=== PATIENT | male | born 1950 | race Caucasian/White ===

== ENCOUNTER 2022-04-30 19:33 | Inpatient (IN) ==
[2022-04-30 20:29] LABS: Basophils % 0.3 % (0.0-0.8); Eosinophils # 0.1 10*3/uL (0.0-0.87); Eosinophils % 1.2 % (0.00-10.9); Hematocrit 26.7 VOL% (42.0-52.0); Hemoglobin 8.4 GM/DL (14.0-18.0); Immature Granulocytes % 0.6 %; Immature Granulocytes Absolute 0.06 #; Lymphocytes # 1.1 10*3/uL (1.4-4.0); Lymphocytes % 11.1 % (21.2-54.2); Mean Corpuscular HGB Conc 31.5 GM/DL (32-36); Mean Corpuscular Volume 92.1 FL (87-102); Mean Platelet Volume 9.9 FL (9.6-12.0); Monocytes # 0.5 10*3/uL (0.11-0.8); Monocytes % 5.4 % (1.7-12.7); Neutrophils % 81.4 % (38.7-73.9); Platelet Count 160 T/CUMM (130-400); Red Cell Distribution Width 16.7 % (9.3-17.3); White Blood Count 9.4 T/CUMM (4-12)
[2022-04-30 20:31] LABS: Albumin 3.5 G/DL (3.4-5.0); Bilirubin,Total 1.5 MG/DL (0.20-1.00); Calcium 8.5 MG/DL (8.5-10.1); Osmolality,Calculated 281.4 MOS/KG (273-304)
[2022-04-30] MEDS ORDERED: PANTOPRAZOLE INJ 80 MG in SODIUM CHLORIDE 0.9% 100 ML IV ONE (23:08)
[2022-04-30] MEDS ORDERED: GLUCAGON 1 MG VIAL IM PRN (23:16)
[2022-04-30] MEDS ORDERED: hydrALAZINE 20 MG/1 ML VIAL IV PRN (23:25)
[2022-04-30] MEDS ORDERED: ONDANSETRON 4 MG/2 ML VIAL IV PRN (23:25)
[2022-04-30] MEDS ORDERED: DEXTROSE 10% 250 ML BAG IV PRN (23:33)
[2022-04-30] MEDS ORDERED: PANTOPRAZOLE 40 MG VIAL IV ONE (23:49)
[2022-05-01] MEDS ORDERED: TRIAMTERENE/HCTZ 37.5-25 MG TABLET PO PRN (00:17)
[2022-05-01] MEDS ORDERED: FLUTICASONE 50 MCG NASAL SPRAY 16 GM BOTTLE BOTH NARES PRN (00:17)
[2022-05-01] MEDS ORDERED: MONTELUKAST 10 MG TABLET PO PRN (00:17)
[2022-05-01] MEDS ORDERED: NITROGLYCERIN SL 0.4 MG TABLET SL PRN (00:17)
[2022-05-01 00:18] LABS: Albumin 3.2 G/DL (3.4-5.0); Bilirubin,Total 1.5 MG/DL (0.20-1.00); Calcium 8.5 MG/DL (8.5-10.1); Osmolality,Calculated 277.7 MOS/KG (273-304); Potassium 4.9 MMOL/L (3.5-5.1); Total Protein 6.1 G/DL (6.4-8.2)
[2022-05-01] MEDS: LACTATED RINGERS 1,000 ML IV SCH ×3 (01:56→20:54)
[2022-05-01 08:44] LABS: Hematocrit 25.3 VOL% (42.0-52.0); Hemoglobin 7.9 GM/DL (14.0-18.0)
[2022-05-01] MEDS ORDERED: PANTOPRAZOLE 40 MG VIAL IV SCH (09:00)
[2022-05-01] MEDS: ATORVASTATIN 40 MG TABLET PO SCH (09:23)
[2022-05-01] MEDS: TAMSULOSIN 0.4 MG CAPSULE PO SCH ×2 (09:23→20:54)
[2022-05-01] MEDS: ERGOCALCIFEROL 50,000 UNIT CAPSULE PO SCH (09:24)
[2022-05-01] MEDS: POLYETHYLENE GLYCOL POWDER 17 GM PACK PO SCH ×2 (09:26→20:54)
[2022-05-01] MEDS: PANTOPRAZOLE 40 MG VIAL IV SCH ×2 (09:26→20:54)
[2022-05-01] MEDS ORDERED: SODIUM CHLORIDE 0.9% 1,000 ML IV PRN (12:50)
[2022-05-01] MEDS ORDERED: ACETAMINOPHEN 325 MG TABLET PO PRN (14:09)
[2022-05-01] MEDS ORDERED: METOPROLOL TARTRATE 5 MG/5 ML VIAL IV PRN ×2 (15:42→16:34)
[2022-05-01 16:27] LABS: Hemoglobin 8.2 GM/DL (14.0-18.0)
[2022-05-01] MEDS ORDERED: DIGOXIN 0.5 MG/2 ML AMP IV ONE ×2 (17:17→17:22)
[2022-05-01 19:42] LABS: Hematocrit 23.7 VOL% (42.0-52.0); Hemoglobin 7.5 GM/DL (14.0-18.0)
[2022-05-02] MEDS ORDERED: EPINEPHrine 1 MG/10 ML SYRINGE IV ONE (04:09)
[2022-05-02] MEDS ORDERED: ETOMIDATE 20 MG/10 ML VIAL IV ONE (04:21)
[2022-05-02] MEDS ORDERED: ROCURONIUM 100 MG/10 ML VIAL IV ONE (04:21)
[2022-05-02 04:51] LABS: Arterial Base Excess iSTAT 1 MMOL/L (-2.5-2.5); Arterial Bicarbonate iSTAT 27.3 MMOL/L (20-26); Arterial O2 Saturation iSTAT 100 % (95-100); Arterial PCO2 iSTAT 49 MM HG (35-48); Arterial PO2 iSTAT 503 MM HG (80-95); Arterial Total CO2 iSTAT 29 MMO/L (23-27); Arterial pH iSTAT 7.353 (7.35-7.45)
[2022-05-02 04:59] LABS: Basophils # 0.1 10*3/uL (0.0-0.2); Basophils % 0.5 % (0.0-0.8); Eosinophils # 0.2 10*3/uL (0.0-0.87); Eosinophils % 1.4 % (0.00-10.9); Hematocrit 28.8 VOL% (42.0-52.0); Hemoglobin 8.9 GM/DL (14.0-18.0); Immature Granulocytes % 0.6 %; Immature Granulocytes Absolute 0.06 #; Lymphocytes # 2.9 10*3/uL (1.4-4.0); Lymphocytes % 28.3 % (21.2-54.2); Mean Corpuscular HGB Conc 30.9 GM/DL (32-36); Mean Corpuscular Volume 94.4 FL (87-102); Mean Platelet Volume 9.6 FL (9.6-12.0); Monocytes # 0.7 10*3/uL (0.11-0.8); Monocytes % 6.6 % (1.7-12.7); Neutrophils % 62.6 % (38.7-73.9); Platelet Count 173 T/CUMM (130-400); Red Blood Count 3.05 MC/CUMM (3.8-5.5); Red Cell Distribution Width 16.6 % (9.3-17.3); White Blood Count 10.4 T/CUMM (4-12)
[2022-05-02] MEDS ORDERED: METOPROLOL TARTRATE 5 MG/5 ML VIAL IV ONE (05:00)
[2022-05-02 05:07] LABS: INR 1.1; PT Patient Result 11.6 SECS (10.1-12.1)
[2022-05-02] MEDS ORDERED: AMIODARONE 450 MG/9 ML VIAL IV ONE (05:18)
[2022-05-02 05:21] LABS: Calcium 8.5 MG/DL (8.5-10.1); Osmolality,Calculated 290.8 MOS/KG (273-304)
[2022-05-02] MEDS: AMIODARONE INJ 450 MG in DEXTROSE 5% 241 ML IV SCH ×2 (05:23→20:30)
[2022-05-02 05:24] LABS: Albumin 3.5 G/DL (3.4-5.0); Bilirubin,Total 2.2 MG/DL (0.20-1.00); Calcium 8.5 MG/DL (8.5-10.1); Potassium 2.8 MMOL/L (3.5-5.1); Total Protein 6.7 G/DL (6.4-8.2)
[2022-05-02] MEDS ORDERED: MIDAZOLAM 100 MG in SODIUM CHLORIDE 0.9% 80 ML IV PRN (05:25)
[2022-05-02] MEDS ORDERED: MIDAZOLAM 2 MG/2 ML VIAL ONE (05:39)
[2022-05-02] MEDS ORDERED: MIDAZOLAM 2 MG/2 ML VIAL IV ONE ×2 (06:00→10:30)
[2022-05-02] MEDS ORDERED: SODIUM CHLORIDE 0.9% 500 ML IV ONE ×2 (06:00→07:00)
[2022-05-02] MEDS ORDERED: POTASSIUM CHLORIDE 20 MEQ TABLET PO ONE (06:00)
[2022-05-02] MEDS: ATORVASTATIN 40 MG TABLET PO SCH (08:42)
[2022-05-02] MEDS: TAMSULOSIN 0.4 MG CAPSULE PO SCH ×2 (08:42→20:31)
[2022-05-02] MEDS: CLOPIDOGREL 75 MG TABLET PO SCH (08:42)
[2022-05-02] MEDS: PANTOPRAZOLE 40 MG VIAL IV SCH ×2 (08:42→20:31)
[2022-05-02] MEDS: POLYETHYLENE GLYCOL POWDER 17 GM PACK PO SCH ×2 (08:42→20:31)
[2022-05-02] MEDS: POTASSIUM CHLORIDE RIDER 10 MEQ/100 ML PREMIX IV PRN (08:46)
[2022-05-02 08:51] LABS: Hematocrit 26.1 VOL% (42.0-52.0); Hemoglobin 8.3 GM/DL (14.0-18.0)
[2022-05-02] MEDS: ASPIRIN CHEW 81 MG TABLET PO SCH (08:53)
[2022-05-02] MEDS ORDERED: ASPIRIN EC 81 MG TABLET PO SCH (09:00)
[2022-05-02] MEDS ORDERED: NOREPINEPHRINE 8 MG in SODIUM CHLORIDE 0.9% 242 ML IV PRN (09:08)
[2022-05-02 11:27] LABS: ABG Base Excess 1.4 MMOL/L (-2.5-2.5); ABG HCO3 25.7 MMOL/L (20-26); ABG PCO2 38.6 MM HG (35-48); ABG PH 7.431 (7.35-7.45)
[2022-05-02 13:39] LABS: Bilirubin,Urine Negative (Negative); Blood, Urine Large mg/dL (Negative); Glucose,Urine (UA) Negative (Negative); Ketones,Urine Negative (Negative); Mucus,Urine Occasional /LPF (Occasional); Nitrite,Urine Negative (Negative); Protein,Urine Trace mg/dL (Negative); RBC,Urine 160 /HPF (0-4); Urine Appearance Clear (Clear); Urine Color Yellow (Yellow); Urine Specific Gravity 1.015 (1.001-1.035)
[2022-05-02 14:18] LABS: Calcium 8.2 MG/DL (8.5-10.1); Osmolality,Calculated 282.3 MOS/KG (273-304); Potassium 4.1 MMOL/L (3.5-5.1)
[2022-05-02] MEDS ORDERED: DIGOXIN 0.5 MG/2 ML AMP IV ONE ×2 (14:29→15:29)
[2022-05-02 20:42] LABS: Hematocrit 22.5 VOL% (42.0-52.0); Hemoglobin 7.3 GM/DL (14.0-18.0)
[2022-05-03 04:05] LABS: ABG HCO3 25.3 MMOL/L (20-26); ABG Oxygen Saturation 99.9 % (95-100); ABG PCO2 35.7 MM HG (35-48); ABG PH 7.449 (7.35-7.45)
[2022-05-03 04:07] LABS: Basophils % 0.3 % (0.0-0.8); Eosinophils # 0.1 10*3/uL (0.0-0.87); Eosinophils % 1.3 % (0.00-10.9); Hematocrit 26.1 VOL% (42.0-52.0); Hemoglobin 8.3 GM/DL (14.0-18.0); Immature Granulocytes % 0.5 %; Immature Granulocytes Absolute 0.05 #; Lymphocytes % 9.6 % (21.2-54.2); Mean Corpuscular HGB Conc 31.8 GM/DL (32-36); Mean Corpuscular Volume 92.2 FL (87-102); Mean Platelet Volume 9.8 FL (9.6-12.0); Monocytes # 0.7 10*3/uL (0.11-0.8); Monocytes % 6.9 % (1.7-12.7); Neutrophils % 81.4 % (38.7-73.9); Platelet Count 123 T/CUMM (130-400); Red Blood Count 2.83 MC/CUMM (3.8-5.5); White Blood Count 9.9 T/CUMM (4-12)
[2022-05-03 04:26] LABS: Albumin 2.9 G/DL (3.4-5.0); Bilirubin,Total 2.7 MG/DL (0.20-1.00); Calcium 8.5 MG/DL (8.5-10.1); Osmolality,Calculated 283.3 MOS/KG (273-304); Total Protein 5.7 G/DL (6.4-8.2)
[2022-05-03] MEDS: POLYETHYLENE GLYCOL POWDER 17 GM PACK PO SCH ×2 (08:16→21:53)
[2022-05-03] MEDS: ASPIRIN CHEW 81 MG TABLET PO SCH (08:16)
[2022-05-03] MEDS: PANTOPRAZOLE 40 MG VIAL IV SCH ×2 (08:16→21:02)
[2022-05-03] MEDS: CLOPIDOGREL 75 MG TABLET PO SCH (08:16)
[2022-05-03] MEDS: TAMSULOSIN 0.4 MG CAPSULE PO SCH ×2 (08:16→21:03)
[2022-05-03] MEDS: ATORVASTATIN 40 MG TABLET PO SCH (08:17)
[2022-05-03] MEDS: AMIODARONE INJ 450 MG in DEXTROSE 5% 241 ML IV SCH (10:54)
[2022-05-03] MEDS: ASCORBIC ACID 500 MG TABLET PO SCH ×2 (11:58→21:03)
[2022-05-03 18:44] LABS: Hematocrit 26.9 VOL% (42.0-52.0); Hemoglobin 8.7 GM/DL (14.0-18.0)
[2022-05-04] MEDS: AMIODARONE INJ 450 MG in DEXTROSE 5% 241 ML IV SCH (02:06)
[2022-05-04 03:56] LABS: Basophils % 0.2 % (0.0-0.8); Eosinophils # 0.3 10*3/uL (0.0-0.87); Eosinophils % 2.7 % (0.00-10.9); Hematocrit 26.3 VOL% (42.0-52.0); Hemoglobin 8.5 GM/DL (14.0-18.0); Immature Granulocytes % 0.2 %; Immature Granulocytes Absolute 0.02 #; Lymphocytes # 1.1 10*3/uL (1.4-4.0); Lymphocytes % 11.8 % (21.2-54.2); Mean Corpuscular HGB Conc 32.3 GM/DL (32-36); Mean Corpuscular Volume 90.7 FL (87-102); Mean Platelet Volume 9.5 FL (9.6-12.0); Monocytes # 0.6 10*3/uL (0.11-0.8); Monocytes % 6.7 % (1.7-12.7); Neutrophils % 78.4 % (38.7-73.9); Platelet Count 116 T/CUMM (130-400); Red Cell Distribution Width 15.1 % (9.3-17.3); White Blood Count 9.3 T/CUMM (4-12)
[2022-05-04 04:16] LABS: Bilirubin,Total 3.2 MG/DL (0.20-1.00); Calcium 8.4 MG/DL (8.5-10.1); Osmolality,Calculated 278.4 MOS/KG (273-304); Potassium 3.6 MMOL/L (3.5-5.1); Total Protein 5.7 G/DL (6.4-8.2)
[2022-05-04] MEDS ORDERED: BENZOCAINE/MENTHOL LOZENGE 18/BOX PO PRN (05:31)
[2022-05-04] MEDS: ASPIRIN CHEW 81 MG TABLET PO SCH (09:47)
[2022-05-04] MEDS: CLOPIDOGREL 75 MG TABLET PO SCH (09:47)
[2022-05-04] MEDS: ATORVASTATIN 40 MG TABLET PO SCH (09:47)
[2022-05-04] MEDS: ASCORBIC ACID 500 MG TABLET PO SCH ×2 (09:47→20:48)
[2022-05-04] MEDS: TAMSULOSIN 0.4 MG CAPSULE PO SCH ×2 (09:47→20:48)
[2022-05-04] MEDS: POLYETHYLENE GLYCOL POWDER 17 GM PACK PO SCH (09:56)
[2022-05-04] MEDS: PANTOPRAZOLE 40 MG VIAL IV SCH ×2 (10:54→20:51)
[2022-05-04] MEDS: POTASSIUM CHLORIDE RIDER 10 MEQ/100 ML PREMIX IV PRN ×2 (10:59→12:05)
[2022-05-04] MEDS: SUCRALFATE 1 GM/10 ML UDCUP PO SCH (16:50)
[2022-05-05 05:58] LABS: Basophils % 0.2 % (0.0-0.8); Eosinophils # 0.2 10*3/uL (0.0-0.87); Eosinophils % 2.3 % (0.00-10.9); Hematocrit 26.9 VOL% (42.0-52.0); Hemoglobin 8.7 GM/DL (14.0-18.0); Immature Granulocytes % 0.5 %; Immature Granulocytes Absolute 0.04 #; Lymphocytes # 1.1 10*3/uL (1.4-4.0); Lymphocytes % 12.1 % (21.2-54.2); Mean Corpuscular HGB Conc 32.3 GM/DL (32-36); Mean Corpuscular Volume 87.9 FL (87-102); Monocytes # 0.6 10*3/uL (0.11-0.8); Monocytes % 6.7 % (1.7-12.7); Neutrophils % 78.2 % (38.7-73.9); Platelet Count 128 T/CUMM (130-400); Red Blood Count 3.06 MC/CUMM (3.8-5.5); Red Cell Distribution Width 14.8 % (9.3-17.3); White Blood Count 8.7 T/CUMM (4-12)
[2022-05-05 06:13] LABS: Albumin 2.8 G/DL (3.4-5.0); Bilirubin,Total 3.1 MG/DL (0.20-1.00); Calcium 8.4 MG/DL (8.5-10.1); Osmolality,Calculated 275.5 MOS/KG (273-304); Potassium 3.7 MMOL/L (3.5-5.1); Total Protein 5.7 G/DL (6.4-8.2)
[2022-05-05 06:25] LABS: Free T4 (Free Thyroxine) 1.28 NG/DL (0.76-1.46)
[2022-05-05] MEDS: CLOPIDOGREL 75 MG TABLET PO SCH (08:52)
[2022-05-05] MEDS: ASCORBIC ACID 500 MG TABLET PO SCH ×2 (08:52→21:02)
[2022-05-05] MEDS: SUCRALFATE 1 GM/10 ML UDCUP PO SCH ×2 (08:52→16:01)
[2022-05-05] MEDS: ATORVASTATIN 40 MG TABLET PO SCH (08:52)
[2022-05-05] MEDS: TAMSULOSIN 0.4 MG CAPSULE PO SCH ×2 (08:53→21:02)
[2022-05-05] MEDS: ASPIRIN CHEW 81 MG TABLET PO SCH (08:53)
[2022-05-05] MEDS: PANTOPRAZOLE 40 MG VIAL IV SCH ×2 (08:53→21:02)
[2022-05-05] MEDS: SODIUM BICARB INJ 150 MEQ in STERILE WATER INJ 1,000 ML IV SCH (15:42)
[2022-05-06] MEDS: SODIUM BICARB INJ 150 MEQ in STERILE WATER INJ 1,000 ML IV SCH ×3 (00:15→14:25)
[2022-05-06 05:03] LABS: Basophils % 0.5 % (0.0-0.8); Eosinophils # 0.2 10*3/uL (0.0-0.87); Eosinophils % 2.7 % (0.00-10.9); Hematocrit 30.3 VOL% (42.0-52.0); Hemoglobin 9.8 GM/DL (14.0-18.0); Immature Granulocytes % 0.6 %; Immature Granulocytes Absolute 0.05 #; Lymphocytes # 1.1 10*3/uL (1.4-4.0); Lymphocytes % 12.9 % (21.2-54.2); Mean Corpuscular HGB Conc 32.3 GM/DL (32-36); Mean Corpuscular Volume 87.3 FL (87-102); Mean Platelet Volume 9.9 FL (9.6-12.0); Monocytes # 0.7 10*3/uL (0.11-0.8); Monocytes % 7.8 % (1.7-12.7); Neutrophils % 75.5 % (38.7-73.9); Platelet Count 138 T/CUMM (130-400); Red Blood Count 3.47 MC/CUMM (3.8-5.5); Red Cell Distribution Width 14.8 % (9.3-17.3); White Blood Count 8.6 T/CUMM (4-12)
[2022-05-06] MEDS: TAMSULOSIN 0.4 MG CAPSULE PO SCH ×2 (09:20→21:22)
[2022-05-06] MEDS: ATORVASTATIN 40 MG TABLET PO SCH (09:20)
[2022-05-06] MEDS: ASPIRIN CHEW 81 MG TABLET PO SCH (09:20)
[2022-05-06] MEDS: CLOPIDOGREL 75 MG TABLET PO SCH (09:20)
[2022-05-06] MEDS: ASCORBIC ACID 500 MG TABLET PO SCH ×2 (09:20→21:22)
[2022-05-06] MEDS: PANTOPRAZOLE 40 MG VIAL IV SCH ×2 (09:21→21:22)
[2022-05-06] MEDS: SUCRALFATE 1 GM/10 ML UDCUP PO SCH ×2 (09:27→19:05)
[2022-05-06] MEDS ORDERED: POLYETHYLENE GLYCOL POWDER 17 GM PACK PO PRN (12:46)
[2022-05-06] MEDS: METOPROLOL TARTRATE 25 MG TABLET PO SCH ×2 (13:14→21:22)
[2022-05-06 13:19] LABS: Calcium 8.5 MG/DL (8.5-10.1); Osmolality,Calculated 276.5 MOS/KG (273-304); Potassium 3.4 MMOL/L (3.5-5.1)
[2022-05-06] MEDS ORDERED: POTASSIUM CHLORIDE 20 MEQ TABLET PO PRN (15:18)
[2022-05-06] MEDS: DOCUSATE SODIUM 100 MG CAPSULE PO SCH (21:22)
[2022-05-07] MEDS: SODIUM BICARB INJ 150 MEQ in STERILE WATER INJ 1,000 ML IV SCH ×3 (03:05→18:00)
[2022-05-07 05:01] LABS: Basophils % 0.4 % (0.0-0.8); Eosinophils # 0.2 10*3/uL (0.0-0.87); Hematocrit 29.8 VOL% (42.0-52.0); Hemoglobin 9.7 GM/DL (14.0-18.0); Immature Granulocytes % 0.6 %; Immature Granulocytes Absolute 0.06 #; Lymphocytes % 9.9 % (21.2-54.2); Mean Corpuscular HGB Conc 32.6 GM/DL (32-36); Mean Corpuscular Volume 87.1 FL (87-102); Mean Platelet Volume 9.7 FL (9.6-12.0); Monocytes # 0.8 10*3/uL (0.11-0.8); Monocytes % 7.7 % (1.7-12.7); Neutrophils % 79.4 % (38.7-73.9); Platelet Count 160 T/CUMM (130-400); Red Blood Count 3.42 MC/CUMM (3.8-5.5); Red Cell Distribution Width 14.6 % (9.3-17.3); White Blood Count 9.9 T/CUMM (4-12)
[2022-05-07 08:05] LABS: Calcium 7.9 MG/DL (8.5-10.1); Osmolality,Calculated 281.3 MOS/KG (273-304); Potassium 3.3 MMOL/L (3.5-5.1)
[2022-05-07] MEDS ORDERED: POTASSIUM CHLORIDE 20 MEQ TABLET PO ONE (09:20)
[2022-05-07] MEDS: DOCUSATE SODIUM 100 MG CAPSULE PO SCH ×2 (11:16→21:39)
[2022-05-07] MEDS: ASPIRIN CHEW 81 MG TABLET PO SCH (11:16)
[2022-05-07] MEDS: SUCRALFATE 1 GM/10 ML UDCUP PO SCH ×2 (11:16→18:19)
[2022-05-07] MEDS: METOPROLOL TARTRATE 25 MG TABLET PO SCH ×2 (11:17→21:39)
[2022-05-07] MEDS: CLOPIDOGREL 75 MG TABLET PO SCH (11:17)
[2022-05-07] MEDS: TAMSULOSIN 0.4 MG CAPSULE PO SCH ×2 (11:17→21:39)
[2022-05-07] MEDS: ATORVASTATIN 40 MG TABLET PO SCH (11:17)
[2022-05-07] MEDS: ASCORBIC ACID 500 MG TABLET PO SCH ×2 (11:18→21:38)
[2022-05-07] MEDS: PANTOPRAZOLE 40 MG VIAL IV SCH ×2 (11:18→21:38)
[2022-05-08] MEDS: SODIUM BICARB INJ 150 MEQ in STERILE WATER INJ 1,000 ML IV SCH ×2 (01:05→08:09)
[2022-05-08 05:32] LABS: Hematocrit 26.7 VOL% (42.0-52.0); Hemoglobin 8.8 GM/DL (14.0-18.0)
[2022-05-08 05:54] LABS: Osmolality,Calculated 280.3 MOS/KG (273-304)
[2022-05-08] MEDS ORDERED: POTASSIUM CHLORIDE 20 MEQ TABLET PO ONE ×2 (07:46→14:28)
[2022-05-08] MEDS: ASCORBIC ACID 500 MG TABLET PO SCH ×2 (09:35→21:29)
[2022-05-08] MEDS: SUCRALFATE 1 GM/10 ML UDCUP PO SCH ×2 (09:35→16:47)
[2022-05-08] MEDS: TAMSULOSIN 0.4 MG CAPSULE PO SCH ×2 (09:35→21:28)
[2022-05-08] MEDS: CLOPIDOGREL 75 MG TABLET PO SCH (09:36)
[2022-05-08] MEDS: ATORVASTATIN 40 MG TABLET PO SCH (09:36)
[2022-05-08] MEDS: ASPIRIN CHEW 81 MG TABLET PO SCH (09:36)
[2022-05-08] MEDS: DOCUSATE SODIUM 100 MG CAPSULE PO SCH ×2 (09:36→21:28)
[2022-05-08] MEDS: METOPROLOL TARTRATE 25 MG TABLET PO SCH ×2 (09:37→21:28)
[2022-05-08] MEDS: PANTOPRAZOLE 40 MG VIAL IV SCH ×2 (09:38→21:29)
[2022-05-08] MEDS: ERGOCALCIFEROL 50,000 UNIT CAPSULE PO SCH (09:38)
[2022-05-09 05:39] LABS: Basophils % 0.3 % (0.0-0.8); Eosinophils # 0.2 10*3/uL (0.0-0.87); Eosinophils % 1.7 % (0.00-10.9); Hematocrit 27.1 VOL% (42.0-52.0); Hemoglobin 8.4 GM/DL (14.0-18.0); Immature Granulocytes % 0.5 %; Immature Granulocytes Absolute 0.06 #; Lymphocytes # 1.3 10*3/uL (1.4-4.0); Lymphocytes % 10.3 % (21.2-54.2); Mean Corpuscular Volume 88.9 FL (87-102); Mean Platelet Volume 9.9 FL (9.6-12.0); Monocytes # 0.9 10*3/uL (0.11-0.8); Monocytes % 7.6 % (1.7-12.7); Neutrophils % 79.6 % (38.7-73.9); Platelet Count 167 T/CUMM (130-400); Red Blood Count 3.05 MC/CUMM (3.8-5.5); Red Cell Distribution Width 14.6 % (9.3-17.3); White Blood Count 12.3 T/CUMM (4-12)
[2022-05-09 05:57] LABS: Calcium 8.8 MG/DL (8.5-10.1); Osmolality,Calculated 279.4 MOS/KG (273-304); Potassium 3.6 MMOL/L (3.5-5.1)
[2022-05-09] MEDS: PANTOPRAZOLE 40 MG VIAL IV SCH ×2 (10:13→21:15)
[2022-05-09] MEDS: ASCORBIC ACID 500 MG TABLET PO SCH ×2 (10:13→21:13)
[2022-05-09] MEDS: METOPROLOL TARTRATE 25 MG TABLET PO SCH ×2 (10:14→21:13)
[2022-05-09] MEDS: ATORVASTATIN 40 MG TABLET PO SCH (10:15)
[2022-05-09] MEDS: SUCRALFATE 1 GM/10 ML UDCUP PO SCH ×2 (10:15→17:09)
[2022-05-09] MEDS: CLOPIDOGREL 75 MG TABLET PO SCH (10:15)
[2022-05-09] MEDS: TAMSULOSIN 0.4 MG CAPSULE PO SCH ×2 (10:15→21:13)
[2022-05-09] MEDS: ASPIRIN CHEW 81 MG TABLET PO SCH (10:15)
[2022-05-09] MEDS: DOCUSATE SODIUM 100 MG CAPSULE PO SCH ×2 (10:16→21:13)
[2022-05-09] MEDS ORDERED: POTASSIUM CHLORIDE 20 MEQ TABLET PO ONE (12:28)
[2022-05-09] MEDS ORDERED: MAGNESIUM SULF RIDER 2 GM/50 ML PREMIX IV ONE (12:28)
[2022-05-10 06:05] LABS: Basophils # 0.1 10*3/uL (0.0-0.2); Basophils % 0.6 % (0.0-0.8); Eosinophils # 0.2 10*3/uL (0.0-0.87); Eosinophils % 2.3 % (0.00-10.9); Hematocrit 31.1 VOL% (42.0-52.0); Hemoglobin 9.7 GM/DL (14.0-18.0); Immature Granulocytes % 0.5 %; Immature Granulocytes Absolute 0.04 #; Lymphocytes # 1.1 10*3/uL (1.4-4.0); Lymphocytes % 13.1 % (21.2-54.2); Mean Corpuscular HGB Conc 31.2 GM/DL (32-36); Mean Corpuscular Volume 87.6 FL (87-102); Mean Platelet Volume 9.6 FL (9.6-12.0); Monocytes # 0.6 10*3/uL (0.11-0.8); Monocytes % 7.1 % (1.7-12.7); Neutrophils % 76.4 % (38.7-73.9); Platelet Count 182 T/CUMM (130-400); Red Blood Count 3.55 MC/CUMM (3.8-5.5); Red Cell Distribution Width 14.5 % (9.3-17.3); White Blood Count 8.4 T/CUMM (4-12)
[2022-05-10 06:25] LABS: Calcium 8.3 MG/DL (8.5-10.1); Osmolality,Calculated 283.1 MOS/KG (273-304); Potassium 3.4 MMOL/L (3.5-5.1)
[2022-05-10] MEDS: PANTOPRAZOLE 40 MG VIAL IV SCH ×2 (08:38→20:19)
[2022-05-10] MEDS: METOPROLOL TARTRATE 25 MG TABLET PO SCH ×2 (08:38→20:18)
[2022-05-10] MEDS: SUCRALFATE 1 GM/10 ML UDCUP PO SCH ×2 (08:38→17:29)
[2022-05-10] MEDS: ASCORBIC ACID 500 MG TABLET PO SCH ×2 (08:38→20:19)
[2022-05-10] MEDS: ASPIRIN CHEW 81 MG TABLET PO SCH (08:39)
[2022-05-10] MEDS: DOCUSATE SODIUM 100 MG CAPSULE PO SCH ×2 (08:39→20:18)
[2022-05-10] MEDS: TAMSULOSIN 0.4 MG CAPSULE PO SCH ×2 (08:39→20:19)
[2022-05-10] MEDS: CLOPIDOGREL 75 MG TABLET PO SCH (08:39)
[2022-05-10] MEDS: ATORVASTATIN 40 MG TABLET PO SCH (08:39)
[2022-05-10] MEDS ORDERED: POTASSIUM CHLORIDE 20 MEQ TABLET PO ONE (11:55)
[2022-05-11] MEDS: ASPIRIN CHEW 81 MG TABLET PO SCH (08:38)
[2022-05-11] MEDS: DOCUSATE SODIUM 100 MG CAPSULE PO SCH (08:38)
[2022-05-11] MEDS: ATORVASTATIN 40 MG TABLET PO SCH (08:38)
[2022-05-11] MEDS: TAMSULOSIN 0.4 MG CAPSULE PO SCH (08:38)
[2022-05-11] MEDS: ASCORBIC ACID 500 MG TABLET PO SCH (08:38)
[2022-05-11] MEDS: CLOPIDOGREL 75 MG TABLET PO SCH (08:38)
[2022-05-11] MEDS: PANTOPRAZOLE 40 MG VIAL IV SCH (08:39)
[2022-05-11] MEDS: METOPROLOL TARTRATE 25 MG TABLET PO SCH (08:39)
[2022-05-11] MEDS: SUCRALFATE 1 GM/10 ML UDCUP PO SCH (08:47)
[2022-05-11] MEDS ORDERED: POTASSIUM CHLORIDE 20 MEQ TABLET PO ONE (09:22)
[2022-05-11 11:55] VITALS: BP 103/54
== END 2022-05-11 15:00 | DRG 377 ==
LOC: N.ED 19:33 → N.EDINP 23:16 → SUATTDRO 23:16 → N.TELES 23:55 → N.CC 05-02 04:37 → N.TELEN 05-05 15:30
PROVIDERS: ADMIT Internal Medicine; ATTEND Family Medicine

== ENCOUNTER 2022-06-03 09:49 | Inpatient (IN) ==
[2022-06-03 10:51] LABS: Basophils % 0.5 % (0.0-0.8); Eosinophils # 0.2 10*3/uL (0.0-0.87); Eosinophils % 2.7 % (0.00-10.9); Hematocrit 29.5 VOL% (42.0-52.0); Immature Granulocytes % 0.5 %; Immature Granulocytes Absolute 0.04 #; Lymphocytes # 1.1 10*3/uL (1.4-4.0); Lymphocytes % 12.5 % (21.2-54.2); Mean Corpuscular HGB Conc 30.5 GM/DL (32-36); Mean Corpuscular Volume 81.7 FL (87-102); Mean Platelet Volume 9.9 FL (9.6-12.0); Monocytes # 0.7 10*3/uL (0.11-0.8); Monocytes % 8.3 % (1.7-12.7); Neutrophils % 75.5 % (38.7-73.9); Platelet Count 145 T/CUMM (130-400); Red Blood Count 3.61 MC/CUMM (3.8-5.5); Red Cell Distribution Width 14.7 % (9.3-17.3); White Blood Count 8.7 T/CUMM (4-12)
[2022-06-03 11:14] LABS: Bilirubin,Total 1.6 MG/DL (0.20-1.00); Calcium 8.5 MG/DL (8.5-10.1); Osmolality,Calculated 277.5 MOS/KG (273-304); Potassium 3.8 MMOL/L (3.5-5.1); Total Protein 6.3 G/DL (6.4-8.2)
[2022-06-03] MEDS ORDERED: DILTIAZEM 25 MG/5 ML VIAL IV STA (11:29)
[2022-06-03] MEDS: DILTIAZEM INJ 100 MG in SODIUM CHLORIDE 0.9% 100 ML IV SCH (11:48)
[2022-06-03] MEDS ORDERED: GLUCAGON 1 MG VIAL IM PRN (12:40)
[2022-06-03] MEDS ORDERED: ONDANSETRON 4 MG/2 ML VIAL IV PRN (12:40)
[2022-06-03] MEDS ORDERED: hydrALAZINE 20 MG/1 ML VIAL IV PRN (12:40)
[2022-06-03] MEDS ORDERED: ACETAMINOPHEN 325 MG TABLET PO PRN (12:40)
[2022-06-03] MEDS ORDERED: POLYETHYLENE GLYCOL POWDER 17 GM PACK PO PRN (12:44)
[2022-06-03] MEDS: SUCRALFATE 1 GM TABLET PO SCH (16:53)
[2022-06-03] MEDS: ENOXAPARIN 40 MG/0.4 ML SYRINGE SUBCUT SCH (16:55)
[2022-06-03] MEDS ORDERED: PNEUMOCOCCAL VACCINE (13 VALENT) 0.5 ML SYRINGE IM ONE (17:44)
[2022-06-03] MEDS: TAMSULOSIN 0.4 MG CAPSULE PO SCH (21:15)
[2022-06-03] MEDS: GABAPENTIN 300 MG CAPSULE PO SCH (21:15)
[2022-06-04] MEDS: DILTIAZEM INJ 100 MG in SODIUM CHLORIDE 0.9% 100 ML IV SCH ×2 (04:07→13:53)
[2022-06-04 04:55] LABS: Basophils % 0.5 % (0.0-0.8); Eosinophils # 0.3 10*3/uL (0.0-0.87); Eosinophils % 3.3 % (0.00-10.9); Hematocrit 28.5 VOL% (42.0-52.0); Hemoglobin 8.6 GM/DL (14.0-18.0); Immature Granulocytes % 0.4 %; Immature Granulocytes Absolute 0.03 #; Lymphocytes # 1.4 10*3/uL (1.4-4.0); Lymphocytes % 17.5 % (21.2-54.2); Mean Corpuscular HGB Conc 30.2 GM/DL (32-36); Mean Corpuscular Volume 81.7 FL (87-102); Mean Platelet Volume 9.9 FL (9.6-12.0); Monocytes # 0.7 10*3/uL (0.11-0.8); Monocytes % 8.3 % (1.7-12.7); Platelet Count 135 T/CUMM (130-400); Red Blood Count 3.49 MC/CUMM (3.8-5.5); Red Cell Distribution Width 14.7 % (9.3-17.3); White Blood Count 7.9 T/CUMM (4-12)
[2022-06-04 05:21] LABS: Calcium 8.2 MG/DL (8.5-10.1); Osmolality,Calculated 274.7 MOS/KG (273-304); Thyroid Stimulating Hormone 0.921 uIU/ml (0.358-3.74)
[2022-06-04] MEDS ORDERED: amLODIPine 5 MG TABLET PO SCH (09:00)
[2022-06-04] MEDS: TAMSULOSIN 0.4 MG CAPSULE PO SCH ×2 (09:08→20:49)
[2022-06-04] MEDS: PANTOPRAZOLE 40 MG TABLET PO SCH (09:08)
[2022-06-04] MEDS: ASPIRIN EC 81 MG TABLET PO SCH (09:08)
[2022-06-04] MEDS: CLOPIDOGREL 75 MG TABLET PO SCH (09:08)
[2022-06-04] MEDS: MONTELUKAST 10 MG TABLET PO SCH (09:08)
[2022-06-04] MEDS: SUCRALFATE 1 GM TABLET PO SCH ×2 (09:08→17:54)
[2022-06-04] MEDS: FLUTICASONE 50 MCG NASAL SPRAY 16 GM BOTTLE BOTH NARES SCH (09:10)
[2022-06-04] MEDS ORDERED: METOPROLOL TARTRATE 25 MG TABLET PO SCH (12:00)
[2022-06-04] MEDS: ENOXAPARIN 40 MG/0.4 ML SYRINGE SUBCUT SCH (14:26)
[2022-06-04] MEDS: DOCUSATE SODIUM 100 MG CAPSULE PO PRN (14:48)
[2022-06-04] MEDS: GABAPENTIN 300 MG CAPSULE PO SCH (20:49)
[2022-06-04] MEDS: METOPROLOL TARTRATE 25 MG TABLET PO SCH (20:49)
[2022-06-04] MEDS ORDERED: ATORVASTATIN 40 MG TABLET PO SCH (21:00)
[2022-06-05] MEDS ORDERED: ERGOCALCIFEROL 50,000 UNIT CAPSULE PO SCH (09:00)
[2022-06-05] MEDS: SUCRALFATE 1 GM TABLET PO SCH (09:10)
[2022-06-05] MEDS: MONTELUKAST 10 MG TABLET PO SCH (09:10)
[2022-06-05] MEDS: METOPROLOL TARTRATE 25 MG TABLET PO SCH (09:10)
[2022-06-05] MEDS: CLOPIDOGREL 75 MG TABLET PO SCH (09:10)
[2022-06-05] MEDS: DOCUSATE SODIUM 100 MG CAPSULE PO PRN (09:10)
[2022-06-05] MEDS: TAMSULOSIN 0.4 MG CAPSULE PO SCH (09:10)
[2022-06-05] MEDS: PANTOPRAZOLE 40 MG TABLET PO SCH (09:10)
[2022-06-05] MEDS: ASPIRIN EC 81 MG TABLET PO SCH (09:10)
[2022-06-05] MEDS: FLUTICASONE 50 MCG NASAL SPRAY 16 GM BOTTLE BOTH NARES SCH (09:16)
[2022-06-05 12:43] VITALS: BP 112/61
== END 2022-06-05 12:40 | disposition home health service (06) | DRG 309 ==
LOC: EDUNIT# → EDBD → N.ED 09:49 → N.EDINP 12:40 → SUATTDRO 12:40 → N.EDINP 15:08 → N.TELEN 16:26
PROVIDERS: ADMIT Internal Medicine; ATTEND Family Medicine

== ENCOUNTER 2022-06-13 17:54 | Observation (INO) ==
[2022-06-13] MEDS ORDERED: DILTIAZEM 25 MG/5 ML VIAL IV STA (19:36)
[2022-06-13 19:50] LABS: Basophils # 0.1 10*3/uL (0.0-0.2); Basophils % 0.6 % (0.0-0.8); Eosinophils # 0.1 10*3/uL (0.0-0.87); Eosinophils % 0.7 % (0.00-10.9); Hematocrit 33.8 VOL% (42.0-52.0); Hemoglobin 10.2 GM/DL (14.0-18.0); Immature Granulocytes % 0.4 %; Immature Granulocytes Absolute 0.04 #; Lymphocytes # 1.1 10*3/uL (1.4-4.0); Lymphocytes % 9.4 % (21.2-54.2); Mean Corpuscular HGB Conc 30.2 GM/DL (32-36); Mean Corpuscular Volume 79.2 FL (87-102); Mean Platelet Volume 9.9 FL (9.6-12.0); Monocytes # 0.8 10*3/uL (0.11-0.8); Monocytes % 7.4 % (1.7-12.7); Neutrophils % 81.5 % (38.7-73.9); Platelet Count 153 T/CUMM (130-400); Red Blood Count 4.27 MC/CUMM (3.8-5.5); Red Cell Distribution Width 15.1 % (9.3-17.3); White Blood Count 11.2 T/CUMM (4-12)
[2022-06-13] MEDS ORDERED: SILVER SULFADIAZINE 1% CREAM 25 GM TUBE TOP ONE (20:22)
[2022-06-13 20:38] LABS: Albumin 3.5 G/DL (3.4-5.0); Bilirubin,Total 1.7 MG/DL (0.20-1.00); Calcium 9.3 MG/DL (8.5-10.1); Osmolality,Calculated 280.5 MOS/KG (273-304); Potassium 3.7 MMOL/L (3.5-5.1); Total Protein 7.1 G/DL (6.4-8.2)
[2022-06-13] MEDS ORDERED: DILTIAZEM INJ 100 MG in SODIUM CHLORIDE 0.9% 100 ML IV SCH (22:00)
[2022-06-13] MEDS ORDERED: ONDANSETRON 4 MG/2 ML VIAL IV PRN (22:38)
[2022-06-13] MEDS ORDERED: ACETAMINOPHEN 325 MG TABLET PO PRN (22:38)
[2022-06-13] MEDS ORDERED: hydrALAZINE 20 MG/1 ML VIAL IV PRN (22:38)
[2022-06-13] MEDS ORDERED: GLUCAGON 1 MG VIAL IM PRN (22:38)
[2022-06-13] MEDS ORDERED: DEXTROSE 10% 250 ML BAG IV PRN (22:38)
[2022-06-13] MEDS ORDERED: MORPHINE 2 MG/1 ML SYRINGE IV PRN (22:38)
[2022-06-13] MEDS ORDERED: POTASSIUM CHLORIDE 20 MEQ TABLET PO STA (23:05)
[2022-06-14] MEDS ORDERED: NITROGLYCERIN SL 0.4 MG TABLET SL PRN (03:19)
[2022-06-14] MEDS ORDERED: POLYETHYLENE GLYCOL POWDER 17 GM PACK PO PRN (03:19)
[2022-06-14] MEDS ORDERED: MAGNESIUM SULF RIDER 2 GM/50 ML PREMIX IV ONE (03:30)
[2022-06-14] MEDS ORDERED: DOCUSATE SODIUM 100 MG CAPSULE PO PRN (03:30)
[2022-06-14 05:40] LABS: Basophils # 0.1 10*3/uL (0.0-0.2); Basophils % 0.6 % (0.0-0.8); Eosinophils # 0.2 10*3/uL (0.0-0.87); Eosinophils % 1.7 % (0.00-10.9); Hematocrit 30.1 VOL% (42.0-52.0); Hemoglobin 9.1 GM/DL (14.0-18.0); Immature Granulocytes % 0.2 %; Immature Granulocytes Absolute 0.02 #; Lymphocytes # 1.3 10*3/uL (1.4-4.0); Lymphocytes % 14.3 % (21.2-54.2); Mean Corpuscular HGB Conc 30.2 GM/DL (32-36); Mean Corpuscular Volume 79.6 FL (87-102); Mean Platelet Volume 9.9 FL (9.6-12.0); Monocytes # 0.8 10*3/uL (0.11-0.8); Monocytes % 8.7 % (1.7-12.7); Neutrophils % 74.5 % (38.7-73.9); Platelet Count 153 T/CUMM (130-400); Red Blood Count 3.78 MC/CUMM (3.8-5.5); Red Cell Distribution Width 15.2 % (9.3-17.3); White Blood Count 9.3 T/CUMM (4-12)
[2022-06-14 05:59] LABS: Calcium 8.5 MG/DL (8.5-10.1); Osmolality,Calculated 279.5 MOS/KG (273-304); Potassium 3.8 MMOL/L (3.5-5.1)
[2022-06-14] MEDS ORDERED: SUCRALFATE 1 GM TABLET PO SCH (06:00)
[2022-06-14] MEDS ORDERED: CLOPIDOGREL 75 MG TABLET PO SCH (09:00)
[2022-06-14] MEDS ORDERED: PANTOPRAZOLE 40 MG TABLET PO SCH (09:00)
[2022-06-14] MEDS ORDERED: METOPROLOL TARTRATE 25 MG TABLET PO SCH ×2 (09:00→21:00)
[2022-06-14] MEDS ORDERED: ATORVASTATIN 40 MG TABLET PO SCH (09:00)
[2022-06-14] MEDS ORDERED: METOPROLOL TARTRATE 50 MG TABLET PO SCH (09:00)
[2022-06-14] MEDS ORDERED: ASPIRIN EC 81 MG TABLET PO SCH (09:00)
[2022-06-14] MEDS ORDERED: TAMSULOSIN 0.4 MG CAPSULE PO SCH (09:00)
[2022-06-14] MEDS ORDERED: ASCORBIC ACID 500 MG TABLET PO SCH (09:00)
[2022-06-14] MEDS ORDERED: DILTIAZEM CD 120 MG CAPSULE PO SCH (11:00)
[2022-06-14 14:58] VITALS: BP 137/66
[2022-06-14] MEDS ORDERED: MONTELUKAST 10 MG TABLET PO SCH (21:00)
[2022-06-14] MEDS ORDERED: GABAPENTIN 300 MG CAPSULE PO SCH (21:00)
[2022-06-15] MEDS ORDERED: FLUTICASONE 50 MCG NASAL SPRAY 16 GM BOTTLE BOTH NARES SCH (09:00)
[2022-06-19] MEDS ORDERED: ERGOCALCIFEROL 50,000 UNIT CAPSULE PO SCH (09:00)
== END 2022-06-14 14:59 | disposition home or self-care (01) ==
LOC: EDBD 17:54 → N.ED 17:54 → EDUNIT# 17:54 → SUATTDRO 22:38 → INTOOBSV 22:38 → N.EDINP 22:38
PROVIDERS: ADMIT Hospitalist; ATTEND Family Medicine

== ENCOUNTER 2022-08-08 14:37 | Observation (INO) ==
[2022-08-08] MEDS ORDERED: DIPH/TET/ACEL PERT BOOSTER VACCINE 0.5 ML VIAL IM ONE (17:24)
[2022-08-08 17:38] LABS: Basophils # 0.1 10*3/uL (0.0-0.2); Basophils % 0.6 % (0.0-0.8); Eosinophils # 0.1 10*3/uL (0.0-0.87); Eosinophils % 0.9 % (0.00-10.9); Hematocrit 38.6 VOL% (42.0-52.0); Hemoglobin 11.1 GM/DL (14.0-18.0); Immature Granulocytes % 0.4 %; Immature Granulocytes Absolute 0.05 #; Lymphocytes # 1.1 10*3/uL (1.4-4.0); Lymphocytes % 8.8 % (21.2-54.2); Mean Corpuscular HGB Conc 28.8 GM/DL (32-36); Mean Corpuscular Volume 70.1 FL (87-102); Mean Platelet Volume 9.1 FL (9.6-12.0); Monocytes # 0.7 10*3/uL (0.11-0.8); Monocytes % 5.2 % (1.7-12.7); Neutrophils % 84.1 % (38.7-73.9); Platelet Count 165 T/CUMM (130-400); Red Blood Count 5.51 MC/CUMM (3.8-5.5); Red Cell Distribution Width 17.2 % (9.3-17.3)
[2022-08-08 17:47] LABS: Bilirubin,Urine Negative (Negative); Blood, Urine Negative (Negative); Glucose,Urine (UA) Negative (Negative); Ketones,Urine Negative (Negative); Mucus,Urine Occasional /LPF (Occasional); Nitrite,Urine Negative (Negative); Protein,Urine Negative (Negative); Squamous Epithelial Cell,Urine Occasional /HPF (0-10); Urine Appearance CLEAR (Clear); Urine Color Straw (Yellow); Urine Urobilinogen < 2.0 eU/dL (<2.0)
[2022-08-08 17:50] LABS: PT Patient Result 11.4 SECS (10.1-12.1); Partial Thromboplastin Time 28.2 SECS (23.7-32.9)
[2022-08-08 18:00] LABS: Alanine Aminotransferase 42 U/L (16-61); Alkaline Phosphatase 96 U/L (45-117); Aspartate Amino Transferase 22 U/L (0-37); Blood Urea Nitrogen 21 MG/DL (7-18); Calcium 8.9 MG/DL (8.5-10.1); Carbon Dioxide 24 MMOL/L (21-32); Chloride 107 MMOL/L (98-107); Glucose 129 MG/DL (74-106); Osmolality,Calculated 279.7 MOS/KG (273-304); Potassium 4.1 MMOL/L (3.5-5.1); Sodium 138 MMOL/L (136-145); Total Protein 7.8 G/DL (6.4-8.2)
[2022-08-08] MEDS ORDERED: ONDANSETRON 4 MG/2 ML VIAL IV ONE (18:23)
[2022-08-08] MEDS ORDERED: MORPHINE 2 MG/1 ML SYRINGE IV ONE (18:23)
[2022-08-08] MEDS ORDERED: ONDANSETRON 4 MG/2 ML VIAL IV PRN (19:33)
[2022-08-08] MEDS ORDERED: MORPHINE 2 MG/1 ML SYRINGE IV PRN (19:33)
[2022-08-08] MEDS: TAMSULOSIN 0.4 MG CAPSULE PO SCH (22:32)
[2022-08-08] MEDS: GABAPENTIN 300 MG CAPSULE PO SCH (22:32)
[2022-08-09] MEDS ORDERED: CLOPIDOGREL 75 MG TABLET PO SCH (09:00)
[2022-08-09] MEDS: FUROSEMIDE 40 MG TABLET PO SCH (11:27)
[2022-08-09] MEDS: ASPIRIN EC 81 MG TABLET PO SCH (11:27)
[2022-08-09] MEDS: TAMSULOSIN 0.4 MG CAPSULE PO SCH ×2 (11:28→21:32)
[2022-08-09] MEDS: PANTOPRAZOLE 40 MG TABLET PO SCH (11:28)
[2022-08-09] MEDS: MONTELUKAST 10 MG TABLET PO SCH (11:28)
[2022-08-09] MEDS: ATORVASTATIN 40 MG TABLET PO SCH (11:28)
[2022-08-09] MEDS: SPIRONOLACTONE 25 MG TABLET PO SCH (11:28)
[2022-08-09] MEDS: GABAPENTIN 300 MG CAPSULE PO SCH (21:32)
[2022-08-09] MEDS: METOPROLOL TARTRATE 50 MG TABLET PO SCH (21:32)
[2022-08-10 06:41] LABS: Calcium 8.5 MG/DL (8.5-10.1); Osmolality,Calculated 275.1 MOS/KG (273-304); Potassium 4.1 MMOL/L (3.5-5.1)
[2022-08-10 06:57] LABS: Basophils # 0.1 10*3/uL (0.0-0.2); Basophils % 0.7 % (0.0-0.8); Eosinophils # 0.2 10*3/uL (0.0-0.87); Eosinophils % 2.1 % (0.00-10.9); Hematocrit 32.2 VOL% (42.0-52.0); Hemoglobin 9.4 GM/DL (14.0-18.0); Immature Granulocytes % 0.4 %; Immature Granulocytes Absolute 0.04 #; Lymphocytes # 1.6 10*3/uL (1.4-4.0); Lymphocytes % 17.2 % (21.2-54.2); Mean Corpuscular HGB Conc 29.2 GM/DL (32-36); Mean Corpuscular Volume 69.5 FL (87-102); Mean Platelet Volume 9.6 FL (9.6-12.0); Neutrophils % 68.6 % (38.7-73.9); Platelet Count 136 T/CUMM (130-400); Red Blood Count 4.63 MC/CUMM (3.8-5.5); Red Cell Distribution Width 17.4 % (9.3-17.3); White Blood Count 9.1 T/CUMM (4-12)
[2022-08-10 07:41] VITALS: BP 100/52
[2022-08-10] MEDS: MONTELUKAST 10 MG TABLET PO SCH (08:25)
[2022-08-10] MEDS: ASPIRIN EC 81 MG TABLET PO SCH (08:25)
[2022-08-10] MEDS: TAMSULOSIN 0.4 MG CAPSULE PO SCH (08:25)
[2022-08-10] MEDS: METOPROLOL TARTRATE 50 MG TABLET PO SCH (08:25)
[2022-08-10] MEDS: SPIRONOLACTONE 25 MG TABLET PO SCH (08:25)
[2022-08-10] MEDS: FUROSEMIDE 40 MG TABLET PO SCH (08:25)
[2022-08-10] MEDS: ATORVASTATIN 40 MG TABLET PO SCH (08:25)
[2022-08-10] MEDS: PANTOPRAZOLE 40 MG TABLET PO SCH (08:25)
[2022-08-11] MEDS ORDERED: APIXABAN 5 MG TABLET PO SCH (09:00)
== END 2022-08-10 13:58 ==
LOC: N.EDINP 14:37 → N.ED 14:37 → SUATTDRO 19:33 → N.2W 21:12
PROVIDERS: ADMIT Family Medicine; ATTEND Internal Medicine